=== PATIENT | female | born 1955 | race Caucasian/White ===

== ENCOUNTER 2021-06-22 07:45 | Outpatient (CLI) | payer MEDICARE ==
[2021-06-22] MEDS ORDERED: IOVERSOL 320 100 ML VIAL IVP ONE ×3 (08:04→13:42)
[2021-06-22] MEDS ORDERED: IOVERSOL 320 50 ML VIAL ONE (08:04)
[2021-06-22 08:24] LABS: ALBUMIN 3.4 g/dL (3.2-5.5); ALBUMIN/GLOBULIN RATIO 0.8 (1.0-2.2); BILIRUBIN,TOTAL 0.5 mg/dL (0.2-1.0); CREATININE 0.8 mg/dL (0.4-1.0); POTASSIUM 4.6 mmol/L (3.5-5.0); TOTAL PROTEIN 7.9 g/dL (6.7-8.2)
[2021-06-22 08:36] LABS: BASOPHILS # (AUTO) 0.1 10^3/uL (0.0-0.1); BASOPHILS % (AUTO) 0.7 %; EOSINOPHILS # (AUTO) 0.2 10^3/uL (0.0-0.7); EOSINOPHILS % (AUTO) 2.1 %; HCT - HEMATOCRIT 42.2 % (37.0-47.0); LYMPHOCYTES # (AUTO) 1.3 10^3/uL (1.5-3.5); LYMPHOCYTES % (AUTO) 12.1 %; MEAN CORPUSCULAR HEMOGLOBIN 32.2 pg (27.0-31.0); MEAN CORPUSCULAR HGB CONC 33.2 g/dL (32.0-36.0); MEAN PLATELET VOLUME 9.1 fL (7.9-10.8); MONOCYTES # (AUTO) 0.6 10^3/uL (0.0-1.0); MONOCYTES % (AUTO) 5.5 %; NEUTROPHILS # (AUTO) 8.4 10^3/uL (1.5-6.6); NEUTROPHILS % (AUTO) 78.5 %; PLT - PLATELET COUNT 645 10^3/uL (130-450); RED BLOOD COUNT 4.35 10^6/uL (4.20-5.40); RED CELL DISTRIBUTION WIDTH 14.7 % (12.0-15.0); WHITE BLOOD COUNT 10.6 x10^3/uL (4.8-10.8)
[2021-06-22] MEDS ORDERED: IOVERSOL 320 50 ML VIAL PO ONE (09:14)
--- NOTE | 2021-06-22 09:38 | CT Report ---
PROCEDURE: Abdomen/Pelvis W INDICATIONS: LOWER ABD PAIN CONTRAST: IV CONTRAST: Optiray 320 ml: 100 PO CONTRAST: Optiray 320 ml50 TECHNIQUE: After the administration of IV and oral contrast, 5 mm thick sections acquired from the diaphragms to the symphysis. 5 mm thick coronal and sagittal reformats were acquired. For radiation dose reducti on, the following was used: automated exposure control, adjustment of mA and/or kV according to maria del carmen ent size. COMPARISON: None. FINDINGS: Image quality: Excellent. ABDOMEN: Lung bases: Lung bases are clear. Heart size is normal. A small hiatal hernia is incidentally note d. Solid organs: Liver and spleen are normal in size and enhancement. Gallbladder wall does not appear thickened. Biliary system is non dilated. Pancreas enhances normally. No adrenal nodules. Kidn eys demonstrate normal size and enhancement, without hydronephrosis. Peritoneum and bowel: The appendix is abnormal, with hyperenhancement and mild dilatation, measuring 9 to 10 mm. Inflammatory change can be seen surrounding the appendix, particularly at its tip. Adjac ent to the tip of the appendix, there is a rim-enhancing fluid collection seen with gas also present. This collection is relatively irregular and measures approximately 5 x 1.6 x 6 cm. This is seen with in the subhepatic location, as on series 3 images 33 through 40 and on series 6 images 14 through 26. Nodes and vessels: No retroperitoneal or mesenteric adenopathy by size criteria. Aorta and inferior vena cava are normal in size. Miscellaneous: No ventral hernias. PELVIS: Genitourinary: Bladder wall thickness is normal. Miscellaneous: No inguinal hernias or adenopathy. Bones: No suspicious bony lesions. No vertebral body compression fractures. Focal prominent degene rative change is seen at L5-S1, with moderate to severe disc space narrowing and associated endplate sclerosis and irregularity. Milder degenerative changes are seen elsewhere. Mild dextroconvex scolio tic curvature is seen. IMPRESSION: Perforated appendicitis. There is a thin, oblong developing abscess seen within the subh epatic location that measures up to 6 cm. Incidental note is made of: Small hiatal hernia Dextroconvex scoliotic curvature Focal L5-S1 degenerative change Note: Case discussed by telephone with Dr. Delcid at 8:34 AM [place] time on 06/22/2021. Reviewed by: Raleigh Mireles MD on 06/22/2021 8:36 AM [facility] Approved by: Raleigh Mireles MD on 06/22/2021 8:36 AM [facility] Station ID: [id number]
== END 2021-06-22 07:46 | disposition home or self-care (01) ==
LOC: DI 07:45
PROVIDERS: ATTEND Physician Assistant
DX: K35.33 Acute appendicitis with perforation, localized peritonitis, and gangrene, with abscess (principal)
CPT/HCPCS: 36415; 80053; 85025

== ENCOUNTER 2021-06-22 09:13 | Emergency (ER) | payer MEDICARE ==
[2021-06-22] MEDS ORDERED: AMPICILLIN/SULBACTAM 3 GM in SODIUM CHLORIDE 0.9% MINIBAG 100 ML IV STA (09:40)
[2021-06-22] MEDS ORDERED: D5.45NS W/20 MEQ KCL 1,000 ML IV STA (09:40)
[2021-06-22] MEDS ORDERED: HYDROmorphone 1 MG/ML CARPUJECT IVP STA ×2 (09:40→13:00)
--- NOTE | 2021-06-22 09:41 | ED Physician Documentation ---
PD HPI ABD PAIN - Stated complaint Stated Complaint: RT ABD PX - Chief complaint Chief Complaint: Abd Pain - History obtained from History obtained from: Patient - Additional information Additional information: 65-year-old woman developed right lower quadrant pain a little over 10 days ago. It has been persistent ever since, initially constipated, now bloody stool today. And looser stools. No history of abdominal surgeries. She was seen in the outpatient setting and labs and a CT were ordered. Labs were notable for a white count of 10.6, hemoglobin of 14.0, platelet count of 645, basically normal chemistries with the exception of a glucose of 115, alkaline phosphatase of 167. She presented after having a contrast enhanced CT this morning which was notable for perforated appendicitis with an oblong abscess in the subhepatic area up to 6 cm with incidental findings of a small hiatal hernia, scoliosis, and some degenerative change in the lower spine. She has had subjective fevers with this. She is taking an NSAID which is modestly helpful. Review of Systems Ten Systems: 10 systems reviewed and negative Constitutional: reports: Fever, Chills, Reviewed and negative Eyes: reports: Reviewed and negative Cardiac: reports: Reviewed and negative Respiratory: reports: Reviewed and negative PD PAST MEDICAL HISTORY - Past Medical History Past Medical History: Yes Cardiovascular: None Respiratory: None Neuro: None Endocrine/Autoimmune: None GI: None RN OBGYN: Miscarriage(s) : None HEENT: None Psych: Depression Musculoskeletal: None Derm: None - Past Surgical History Past Surgical History: Yes Ortho: Other - Present Medications Home Medications: Ambulatory Orders Medication Instructions Recorded Confirmed Amox/Clav 875/125 [Augmentin 1 tab ORAL BID 06/22/21 06/22/21 875/125 Tab] Citalopram Hydrobromide 40 mg PO DAILY 06/22/21 06/22/21 [Citalopram HBr] Ibuprofen 400 mg PO Q6HR PRN 06/22/21 06/22/21 - Allergies Allergies/Adverse Reactions: Allergies Allergy/AdvReac Type Severity Reaction Status Date / Time bupropion [From Wellbutrin] Allergy Rash Verified 06/22/21 09:16 - Social History Does the pt smoke?: No Smoking Status: Current every day smoker Does the pt drink ETOH?: Yes Does the pt have substance abuse?: No - Family History Family history: reports: Non contributory - Immunizations Immunizations are current?: Yes PD ED PE NORMAL - Vitals Vital signs reviewed: Yes - General General: Alert and oriented X 3, No acute distress - HEENT HEENT: PERRL, EOMI - Neck Neck: Supple, no meningeal sign, No bony TTP - Cardiac Cardiac: RRR, No murmur - Respiratory Respiratory: No respiratory distress, Clear bilaterally - Abdomen Abdomen: Other (Feeling better with her legs flexed at the hips, tender in the right lower quadrant without diffuse peritoneal signs.) - Back Back: No CVA TTP, No spinal TTP - Derm Derm: Normal color, Warm and dry - Extremities Extremities: No edema, No calf tenderness / cord - Neuro Neuro: Alert and oriented X 3, Normal speech Results - Vitals Vitals: Vital Signs - 24 hr 06/22/21 06/22/21 09:17 09:32 Temperature 36.9 C Heart Rate 80 77 Respiratory 16 16 Rate Blood Pressure 127/56 L 98/69 O2 Saturation 99 100 Oxygen O2 Source Room air PD MEDICAL DECISION MAKING - ED course ED course: 65-year-old woman with ruptured appendicitis. May need transfer to a place with interventional radiology and even if not our OR is closed for the entire weekend for staffing issues. Patient requested we called [facility] and they were called at approximately 9:40 AM to look into potential transfer. She was graciously accepted by Dr. Montanez, general surgery in [place] at 10:23 PM. They are not assigning a bed until the Covid test is done. Departure - Departure Disposition: 02 Transfer Acute Care Hosp Clinical Impression: Ruptured suppurative appendicitis, Intra-abdominal abscess Condition: Stable
[2021-06-22 13:24] VITALS: BP 118/63
== END 2021-06-22 13:50 | disposition short-term general hospital (02) ==
LOC: ED 09:13
DX: K35.33 Acute appendicitis with perforation, localized peritonitis, and gangrene, with abscess (principal); F17.200 Nicotine dependence, unspecified, uncomplicated
CPT/HCPCS: 36415; 74177; 80053; 85025; 87635; 96365; 96375; 96376; 99285; J1170; Q9967

== ENCOUNTER 2021-06-22 13:55 | Outpatient (CLI) | payer MEDICARE | END 2021-06-22 13:56 | disposition short-term general hospital (02) | LOC: EMS 13:55 | PROVIDERS: ATTEND Emergency Medicine | DX: K35.32 Acute appendicitis with perforation, localized peritonitis, and gangrene, without abscess (principal) | CPT/HCPCS: A0425; A0427 ==

== ENCOUNTER 2021-07-18 13:53 | Outpatient (CLI) | payer MEDICARE ==
[2021-07-18] MEDS ORDERED: IOVERSOL 320 50 ML VIAL ONE (14:07)
[2021-07-18] MEDS ORDERED: IOVERSOL 320 100 ML VIAL IVP ONE ×2 (14:07→15:31)
[2021-07-18] MEDS ORDERED: IOVERSOL 320 50 ML VIAL PO ONE (15:33)
--- NOTE | 2021-07-18 17:33 | CT Report ---
PROCEDURE: Low Dose Lung Cancer Screen INDICATIONS: TOBACCO USER TECHNIQUE: Noncontrast 1mm axial images were acquired from the pulmonary apices to the posterior costophrenic an gles. Axial 5 mm soft tissue kernel reconstructions were performed as well as 8 mm axial MIP and cor onal and sagittal 5 mm reformations. For radiation dose reduction, the following was used: automate d exposure control, adjustment of mA and/or kV according to patient size. COMPARISON: CT of the abdomen dated 06/22/2021 FINDINGS: Image quality: Excellent. Lungs and pleura: No acute air space opacities. No pleural effusions or pneumothorax. Central and peripheral airways are patent and normal in caliber. Bilateral pulmonary scarring in the lung bases. The lungs have centrilobular emphysematous changes. A 6 mm pleural nodule in the right lateral costo phrenic angle series 5 image 141 and a 2 mm nodule in the right lower lobe series 5 image 127 are bot h unchanged compared to the prior CT on 06/22/2021. Mediastinum: Heart size is normal. No pericardial effusion. No mediastinal adenopathy by size crit eria. Thoracic aorta and central pulmonary arteries are normal in size. Esophagus is normal in torrie michael. No hiatal hernia. Bones and chest wall: No suspicious bony lesions. No vertebral body compression fractures. No axil tonya or supraclavicular adenopathy by size criteria. The thyroid is normal in size. Abdomen: Visualized upper abdominal solid organs and bowel loops appear normal in the absence of con trast. IMPRESSION: Lung-RADS 3: Probably benign; recommend [address] Reviewed by: Dany Allen on 07/18/2021 5:31 PM PDT Approved by: Dany Allen on 07/18/2021 5:31 PM PDT Station ID: [id number]
--- NOTE | 2021-07-18 17:39 | CT Report ---
PROCEDURE: Abdomen/Pelvis W INDICATIONS: RIGHT LOWER QUAD PAIN S/P APPENDECTOMY TECHNIQUE: After the administration of contrast, 5 mm thick sections acquired from the diaphragms to the sym physis. 5 mm thick coronal and sagittal reformats were acquired. For radiation dose reduction, the following was used: automated exposure control, adjustment of mA and/or kV according to patient size . COMPARISON: 06/22/2021 FINDINGS: Image quality: Excellent. ABDOMEN: Lung bases: Lung bases are clear. Heart size is normal. Solid organs: Liver: The liver has no mass or intrahepatic biliary ductal dilatation. The portal vein and hepatic veins are patent. The liver is hypodense consistent with hepatic steatosis. Biliary: The gallbladder has no gallstones, pericholecystic fluid, gallbladder wall thickening, or kaur rrounding inflammatory change. Pancreas: The pancreas has no mass or ductal dilatation. No surrounding inflammation. Spleen: Normal size. No mass. Adrenal glands: No hypertrophy or nodules. Kidneys: No obstructive calculus or hydronephrosis. No solid mass. No cystic mass. Bowel: There is a small hiatal hernia. The small bowel has a normal caliber and appearance. The term inal ileum is normal. The large bowel has a normal caliber and appearance. Free air/free fluid: No free air or free fluid. Abdominal wall: No abdominal wall mass or hernia. Retroperitoneum: No retroperitoneal or mesenteric adenopathy by size criteria. Aorta and inferior ve na cava are normal in size. The aorta has atherosclerotic calcifications. Lymph nodes: No adenopathy. Bones: There are multilevel degenerative changes in the lumbar spine with multilevel disc disease. No vertebral body compression fractures. PELVIS: Genitourinary: Bladder wall thickness is normal. Miscellaneous: No inguinal hernias or adenopathy. Bones: No suspicious bony lesions. No vertebral body compression fractures. IMPRESSION: No acute abdominal or pelvic abnormality. Status post appendectomy with no complication identified. Reviewed by: Dany Allen on 07/18/2021 5:38 PM PDT Approved by: Dany Allen on 07/18/2021 5:38 PM PDT Station ID: [id number]
== END 2021-07-18 13:54 | disposition home or self-care (01) ==
LOC: DI 13:53
DX: Z12.2 Encounter for screening for malignant neoplasm of respiratory organs (principal); R10.31 Right lower quadrant pain; Z90.49 Acquired absence of other specified parts of digestive tract; F17.210 Nicotine dependence, cigarettes, uncomplicated
CPT/HCPCS: 71271; 74177; Q9967

== ENCOUNTER 2021-10-25 11:25 | Day surgery (SDC) | payer MEDICARE ==
[2021-10-25] MEDS ORDERED: LACTATED RINGERS 1,000 ML IV ONE (11:28)
[2021-10-25] MEDS ORDERED: LIDOCAINE-MPF 2% 5 ML VIAL ONE (11:39)
[2021-10-25] MEDS ORDERED: PROPOFOL 500 MG/50 ML 500 MG/50 ML VIAL ONE (11:39)
--- NOTE | 2021-10-25 12:00 | ANESTHESIA ---
Pre-Anesthesia VS, & Labs - Diagnosis screening - Procedure colonoscopy Vital Signs: Temp Pulse Resp BP Pulse Ox 36.0 C L 85 16 137/64 H 98 10/25/21 11:41 10/25/21 11:41 10/25/21 11:41 10/25/21 11:41 10/25/21 11:41 Height: 5 ft 6 in Weight (kg): 62.5 kg Body Mass Index: 22.2 BMI Classification: Healthy weight - NPO >8 hours - Is Patient ?: No - Lab Results Lab results reviewed: Yes Home Medications and Allergies Citalopram Hydrobromide [Citalopram HBr] 40 mg PO DAILY 06/22/21 Allergies/Adverse Reactions: Allergies Allergy/AdvReac Type Severity Reaction Status Date / Time bupropion [From Wellbutrin] Allergy Rash Verified 06/22/21 09:16 Anes History & Medical History - Anesthetic History Anesthesia Complications: reports: No previous complications Family history of Anesthesia Complications: Denies Family history of Malignant Hyperthermia: Denies - Medical History Cardiovascular: reports: None Pulmonary: reports: None, Shortness of breath Gastrointestinal: reports: None Urinary: reports: None Neuro: reports: None Musculoskeletal: reports: None Endocrine/Autoimmune: reports: None Blood Disorders: reports: None Skin: reports: None Smoking Status: Current every day smoker Psychosocial: reports: Depression, Alcohol History of Cancer?: No - Surgical History General: reports: Appendectomy Orthopedic: reports: Other Exam General: Alert, Oriented x3 Dental: Dentures full Upper Mouth Openin Fingerbreadth Neck Mobility: Normal Mallampati classification: II Thyromental Distance: 4-6 cm Respiratory: Decreased breath sounds Cardiovascular: Regular rate Mental/Cognitive Status: Alert/Oriented X3, Normal for patient Cognitive Status: Within normal limits Plan Anesthesia Type: General Consent for Procedure(s) Verified and Reviewed: Yes Code Status: Attempt Resuscitation ASA classification: 2-Mild systemic disease Is this case an emergency?: No
[2021-10-25] MEDS ORDERED: MIDAZOLAM 2 MG/2 ML VIAL ONE (12:18)
[2021-10-25] MEDS ORDERED: LACTATED RINGERS 200 ML IV ONE (13:20)
[2021-10-25] MEDS ORDERED: PROPOFOL 200 MG/20 ML VIAL IVP ONE (13:27)
--- NOTE | 2021-10-25 13:33 | ANESTHESIA POST OP EVALUATION ---
Anesthesia Post Eval - Post Anesthesia Eval Vitals: Last Vital Signs Temp 36.0 C L 10/25/21 13:20 Pulse 63 10/25/21 13:26 Resp 18 10/25/21 13:26 BP 106/53 L 10/25/21 13:26 Pulse Ox 96 10/25/21 13:26 CV Function Including HR & BP: Stable Pain Control: Satisfactory Nausea & Vomiting: Negative Mental Status: Baseline Respiratory Status: Airway Patent Hydration Status: Satisfactory Anesthesia Complications: None
[2021-10-25 14:35] VITALS: BP 119/57
== END 2021-10-25 11:26 | disposition home or self-care (01) ==
LOC: SDS 11:25
PROVIDERS: ATTEND Surgery
PROC: 0DBP8ZX Excision of Rectum, Via Natural or Artificial Opening Endoscopic, Diagnostic (ICD-10-PCS; 2021-10-25)
PROC: 0DBK8ZX Excision of Ascending Colon, Via Natural or Artificial Opening Endoscopic, Diagnostic (ICD-10-PCS; principal; 2021-10-25 12:30)
DX: Z12.11 Encounter for screening for malignant neoplasm of colon (principal); K62.1 Rectal polyp; D12.2 Benign neoplasm of ascending colon; J44.9 Chronic obstructive pulmonary disease, unspecified; F17.200 Nicotine dependence, unspecified, uncomplicated
CPT/HCPCS: 45380; J7120

== ENCOUNTER 2022-12-17 12:37 | Outpatient (CLI) | payer MEDICARE ==
--- NOTE | 2022-12-18 12:32 | XRAY Report ---
PROCEDURE: Shoulder 3 View RT INDICATIONS: LOW BACK PAIN, RT SHOULDER PAIN TECHNIQUE: 4 views of the shoulder were acquired. COMPARISON: None. FINDINGS: Bones: No fractures or dislocations. No suspicious bony lesions. Pronounced AC joint hypertrophy. Soft tissues: No suspicious soft tissue calcifications. IMPRESSION: No acute bony abnormality. If pain persists with conservative management, consider repeat radiographs in 10-14 days or cross-sectional imaging. Reviewed by: Donaldo Pope MD on 12/18/2022 12:31 PM PDT Approved by: Donaldo Pope MD on 12/18/2022 12:31 PM PDT Station ID: [id number]
--- NOTE | 2022-12-18 12:40 | XRAY Report ---
PROCEDURE: Lumbar Spine 2 View INDICATIONS: LOW BACK PAIN, RT SHOULDER PAIN TECHNIQUE: 3 views of the lumbar spine were acquired. COMPARISON: CT abdomen pelvis 07/18/2021 FINDINGS: Bones: 5 [id number] vertebrae are present. Mild right convexity curvature centered at L2. 4 mm retrolisthesis L4 on L5, 4 mm retrolisthesis L3 on L4, 3 mm retrolisthesis L2 on L3. No lumbar verte bral body compression fracture identified. Moderate multilevel degenerative changes with disc height loss, endplate spurring, and facet arthropathy. Soft tissues: Overlying bowel gas pattern is normal. No suspicious soft tissue calcifications. IMPRESSION: Multilevel degenerative changes of the lumbar spine. Reviewed by: Donaldo Pope MD on 12/18/2022 12:39 PM PDT Approved by: Donaldo Pope MD on 12/18/2022 12:39 PM PDT Station ID: [id number]
== END 2022-12-17 12:38 | disposition home or self-care (01) ==
LOC: DI 12:37
PROVIDERS: ATTEND Nurse Practitioner Family
DX: M25.511 Pain in right shoulder (principal); M47.816 Spondylosis without myelopathy or radiculopathy, lumbar region; M43.16 Spondylolisthesis, lumbar region

== ENCOUNTER 2023-10-16 12:59 | Outpatient (CLI) | payer MEDICARE ==
--- NOTE | 2023-10-16 14:54 | DEXA Report ---
PROCEDURE: Dexa Spine and/or Hip INDICATIONS: POST MENOPAUSAL TECHNIQUE: Dual energy x-ray absorptiometry (DXA) was performed on a RetSKU System. Regions measur ed are the AP Spine, femoral neck, and if needed forearm. COMPARISON: None FINDINGS: Lumbar Spine: Bone Mineral Density: 1.41 g/cm/cm,T score: 2. Left Femoral Neck: Bone Mineral Density: 1.07 g/cm/cm, T score: 0.2. Left Hip: Bone Mineral Density: 1.02 g/cm/cm,T score: 0.1. (T score greater or equal to -1.0: NORMAL) (T score from -1.1 to -2.4: OSTEOPENIA) (T score less than or equal to -2.5 to: OSTEOPOROSIS) Impression: By WHO criteria, this patient has normal bone density. Patients with diagnosis of osteoporosis or osteopenia should have regular bone mineral density assess ment. For those eligible for Medicare, routine testing is allowed once every 2 years. Testing frequ ency can be increased for patients who have rapidly progressing disease or for those who are receivin g medical therapy to restore bone mass. Reviewed by: Matthew Puckett MD on 10/16/2023 2:53 PM PDT Approved by: Matthew Puckett MD on 10/16/2023 2:53 PM PDT Station ID: [id number]
== END 2023-10-16 13:00 | disposition home or self-care (01) ==
LOC: DI 12:59
PROVIDERS: ATTEND Nurse Practitioner Family
DX: F17.210 Nicotine dependence, cigarettes, uncomplicated (principal); Z78.0 Asymptomatic menopausal state

== ENCOUNTER 2023-10-16 13:00 | Outpatient (CLI) | payer MEDICARE ==
--- NOTE | 2023-10-16 16:51 | CT Report ---
PROCEDURE: Lung Cancer Screen INDICATIONS: SMOKER TECHNIQUE: A CT scan of the chest was performed. Intravenous contrast media was not administered. Images were re corded and evaluated at appropriate window settings. Reformats: axial MIP of the chest, coronal and s agittal. For radiation dose reduction, the following was used: automated exposure control, adjustment of mA and/or kV according to patient size. COMPARISON: 07/18/2021 FINDINGS: Image quality: Excellent. Prior cancer history: Unknown Lungs and pleura: No pleural effusions. No pneumothorax. Moderate centrilobular emphysematous change . Numerous diffuse bilateral groundglass and solid pulmonary nodules, predominantly in the upper lobe s. The largest on the right is in the lateral costophrenic sulcus measuring 0.6 cm. The largest on th e left is in the anterior upper lobe measuring 0.5 cm, 12/111. There are no acute groundglass opaciti es, consolidations, or effusions. There is chronic scarring in the posterior medial left lower lobe. Mediastinum: Heart size is normal. No pericardial effusion. No large vessel abnormality. No mediastin al adenopathy by size criteria. No anterior or posterior mediastinal mass. Normal esophagus with a s mall hiatal hernia. Chest wall and lower neck: Thyroid is unremarkable. No axillary or supraclavicular adenopathy by size . Bones: No aggressive osseous abnormality. Upper Abdomen: Mild hepatic steatosis. Moderate abdominal aortic calcification. Visible portions of t he upper abdomen are otherwise normal. IMPRESSION: Lung RAD: 3 - Probably Benign. Recommendation: Continue screening in 6 Months with LDCT The largest right lung nodule in the costophrenic sulcus is stable. Other lung nodules, including the largest left lung nodule have developed since the previous study. These are probably infectious or i nflammatory. Non-Lung Significant Findings: None. Reviewed by: Fabiola Danielson MD on 10/16/2023 4:50 PM PDT Approved by: Fabiola Danielson MD on 10/16/2023 4:50 PM PDT Station ID: [id number]
== END 2023-10-16 13:01 | disposition home or self-care (01) ==
LOC: DI 13:00
PROVIDERS: ATTEND Nurse Practitioner Family
DX: Z12.2 Encounter for screening for malignant neoplasm of respiratory organs (principal); F17.200 Nicotine dependence, unspecified, uncomplicated; R91.8 Other nonspecific abnormal finding of lung field; Z78.0 Asymptomatic menopausal state